=== PATIENT | female | born 1995 | race Two or more races ===

== ENCOUNTER 2025-06-09 16:17 | Inpatient (IN) | payer OTHER, MEDICAID ==
[~2025-06-09] VITALS: Ht 170.2 cm; Wt 76.6 kg
[2025-06-09 17:05] LABS: Hematocrit 40.8 % (36.0-46.0); Hemoglobin 13.8 g/dL (12.2-16.2); Mean Corpuscular Hemoglobin 29.9 pg (28.0-32.0); Mean Corpuscular Volume 88.2 fL (80.0-100.0); Nucleated Red Blood Cells % 0.0 %
[2025-06-09 17:14] LABS: Albumin 4.4 g/dL (3.2-4.8); Alkaline Phosphatase 101 U/L (46-116); Anion Gap 8 (5-15); BUN/Creatinine Ratio 11.3 (10.0-20.0); Calcium 8.8 mg/dL (8.7-10.4); Carbon Dioxide 28 mmol/L (20-31); Chloride 103 mmol/L (98-107); Glucose 101 mg/dL (74-106); Lipase 29 U/L (12-53); Potassium 3.7 mmol/L (3.5-5.1); Sodium 139 mmol/L (136-145); Total Protein 6.5 g/dL (5.7-8.2)
[2025-06-09 17:15] LABS: Bilirubin, Total 1.0 mg/dL (0.2-1.0)
--- NOTE | 2025-06-09 17:25 | DVH ---
ULTRASOUND ABDOMEN, LIMITED RIGHT UPPER QUADRANT: REASON FOR EXAM: RUQ PAIN, H/O GALLSTONES. TECHNIQUE: Real-time sector scans in the transverse and longitudinal planes were obtained through th e right upper quadrant of the abdomen. FINDINGS: The liver is borderline enlarged at 17.3 cm in length. There is hepatopetal flow in the po rtal vein. There is no intrahepatic nor extrahepatic biliary ductal dilatation. The common bile duct measures 6 mm. There are small stones within the gallbladder measuring up to 10 mm. There is no ga llbladder wall thickening nor pericholecystic fluid. There is no sonographic Babb's sign. The pancreas is mostly obscured by bowel gas. The right kidney measures 10.3 cm. No hydronephrosis or nephrolithiasis is identified. There is no evidence of right renal mass or cyst. The visualized portions of the abdominal aorta demonstrate no evidence of aneurysmal dilatation. The visualized inferior vena cava is unremarkable. There is no free fluid identified in the right upper quadrant. IMPRESSION: Cholelithiasis without other evidence of acute cholecystitis. No sonographic babb's sign. Correlat e clinically. Nuclear medicine HIDA scan may be helpful.
[2025-06-09] MEDS: PANTOPRAZOLE 40 MG TAB PO ONE (17:34)
[2025-06-09] MEDS: SUCRALFATE 1 GM TAB PO ONE (17:34)
[2025-06-09] MEDS: SODIUM CHLORIDE 0.9% 1,000 ML IV ONE ×2 (17:34→22:13)
[2025-06-09] MEDS: LIDOCAINE VISCOUS 2% 15ML UD PO ONE (17:34)
[2025-06-09] MEDS: ONDANSETRON HCL 4 MG/2 ML VIAL IV ONE (17:34)
[2025-06-09 17:38] LABS: Alanine Aminotransferase 557 U/L (7-40); Blood Urea Nitrogen 7 mg/dL (9-23)
[2025-06-09 17:40] LABS: Urine Amorphous Crystal FEW /hpf (None Seen); Urine Protein, UAD Negative (Negative)
--- NOTE | 2025-06-09 18:09 | ED.PDOC ---
GI ASSESSMENT HPI Comments 29-year-old female presents with a chief complaint of abdominal pain x 0800 this morning with associated nausea and vomiting. Patient states that her pain is localized to her RUQ/Epigastric region, nonradiating, nonexertional, describes as constant sharp pain that she rates a 8/10. Patient mentions that she knows it is her gallbladder because she has had similar pain before in the past and was diagnosed with gallstones. Patient states that she has vomited 3 times today and her emesis is brown in color. PMHx: Gallstones PSHx: Denies lynch: HPI: Poor Historian. REVIEW OF SYSTEMS: CONSTITUTIONAL: Denies acute: fever, diaphoresis, chills, HEAD: Denies acute: headache, photophobia Eyes: Denies acute: Double vision, vision loss, eye pain, eye discharge. EARS: Denies acute: tinnitus, hearing loss, ear discharge, ear pain, THROAT: Denies acute: sore throat, swelling, difficulty swallowing , pain with swallowing, change in voice. NECK: Denies acute: neck pain, neck swelling, stiff neck. HEART: Denies acute : chest pain, palpitations, LUNGS: Denies acute: SOB, wheezing, cough, hemoptysis ABDOMEN: Denies acute: diarrhea, melena , hematemesis, hematochezia SKIN: Denies acute: rash, redness, lesions, itchiness. EXTREMITIES: Denies acute: calf pain, numbness, tingling, weakness, denies pain in extremity. Denies acute: Low back pain. Neuro: Denies acute: focal neurological deficit, motor or sensory focal neurological deficit, tremors, seizure like activity, confusion, dizziness, change in mental status, loss of bowel or bladder function, cauda equina like symptoms. : Denies acute: dysuria, hematuria, flank pain, increase in urinary frequency. PSYCH: Denies acute: hallucination, suicidal ideation, homicidal ideation. FEMALE: Denies acute: abnormal vaginal bleeding, foul odor, unusual discharge. PHYSICAL EXAM: General: ----moderate----acute distress, awake and alert. Head: normocephalic, atraumatic. Neck: supple, trachea is midline, no swelling. Throat: Normal phonation. Eyes:, no erythema, no purulent discharge, no proptosis, no icterus. Heart: regular rate, regular rhythm, no significant murmur appreciated. Lungs: no apparent respiratory distress, Able to speak in full sentences. No wheezing, no rhonchi, no crackles. No stridors Clear to auscultation bilaterally. Abdomen: epig and RUQ abd tender to palpation, non distended, soft, no guarding, no rebound, + bowel sounds. Neuro: Awake, Alert, oriented to name, self, situation, follows commands GCS=15. Speech is normal. Skin: no petechia, no purpura, no cyanosis, non-pale, not jaundice. Lower extremities: --no - Pitting edema no deformity, no focal swelling, no calf TTP. Makes eye contact. moves all four extremities. Face: no apparent facial droop. Ambulating in the ED independently. ED COURSE: DISCLAIMER: This medical document was created using an electronic medical record system with voice recognition software and computerized dictation system. Although this document has been carefully reviewed, there might still be some phonetic and typographical errors. Occasional wrong-word or "sound-alike" substitutions may have occurred due to the inherent limitations of voice recognition software. These areas are purely typographical due to imperfections of the software programs and do not reflect any compromise in the patient's medical care. Please read the chart carefully and recognize, using context, where these substitutions have occurred. Chief Complaint: Abdominal Pain Time Seen by MD: 18:02 Reviewed Notes: Medications, Allergies Allergies: Coded Allergies: NO KNOWN ALLERGIES (Unverified , 06/09/25) Information Source: Patient Mode of Arrival: Ambulatory Past Medical History PAST MEDICAL HISTORY: Gallstones Surgical History: Denies all surgeries [employer] History: Denies all [employer] Hx Family History Family History: Reviewed,noncontributory to illness Social History Smoker: Non-Smoker Alcohol: Denies ETOH Use Drugs: Denies Drug Use Lives In: Home Was a procedure done? Was a procedure done?: No GI differential Dx Differential Diagnosis: Other (DDX include Diverticulitis, colitis, gastroenteritis, acute abdomen, SBO, enteritis, constipation, volvulus, appendicitis, Gallbladder disease, choledocolithiasis, ascending cholangitis, pa ncreatitis, intraAbdominal mass/neoplasm, hepatitis, UTI, pylonephritis, kidney stone, aneurysm, dissection, Inflammatory bowel disease, gastroparesis, ischemic bowel, ovarian torsion, ovarian cyst/mass, tubo-ovarian abscess, , ectopic , PID, STD.) X-Ray, Labs, Meds, VS Vital Signs Date Time Temp Pulse Resp B/P (MAP) Pulse Ox O2 Delivery O2 Flow Rate FiO2 06/09/25 18:53 113/67 06/09/25 18:29 98.3 60 14 113/67 (82) 99 98.3 06/09/25 16:20 98.6 69 18 129/53 100 98.6 Lab Test 06/09/25 17:19 06/09/25 16:51 Range/Units Urine Color Yellow Yellow Urine Clarity Turbid H Clear Urine pH 5.5 5.0-9.0 Urine Specific Hammett 1.023 1.001-1.035 Urine Protein Negative Negative Urine Ketones Negative Negative Urine Blood Negative Negative /uL Urine Nitrite Negative Negative Urine Bilirubin Negative Negative Urine Urobilinogen 4 H Negative mg/dL Urine Leukocyte Esterase 3+ Negative /uL Urine RBC 5 0 - 4 /hpf Urine Microscopic WBC 24 H 0-5 /HPF Urine Squamous Epithelial Cells Mod <5 /hpf Urine Amorphous Crystals Few None Seen /hpf Urine Bacteria Few H None Seen /hpf Urine Mucus Few None Seen Urine Glucose Normal Normal mg/dL Urine Test Positive Negative White Blood Count 8.4 4.4-10.8 10^3/uL Red Blood Count 4.62 4.0-5.20 10^6/uL Hemoglobin 13.8 12.2-16.2 g/dL Hematocrit 40.8 36.0-46.0 % Mean Corpuscular Volume 88.2 80.0-100.0 fL Mean Corpuscular Hemoglobin 29.9 28.0-32.0 pg Mean Corpuscular Hemoglobin Concent 33.9 32.0-36.0 g/dL Red Cell Distribution Width 13.8 11.8-14.3 % Platelet Count 298 140-450 10^3/uL Mean Platelet Volume 8.7 6.9-10.8 fL Neutrophils (%) (Auto) 82.3 H 37.0-80.0 % Lymphocytes (%) (Auto) 12.4 10.0-50.0 % Monocytes (%) (Auto) 4.3 0.0-12.0 % Eosinophils (%) (Auto) 0.9 0.0-7.0 % Basophils (%) (Auto) 0.1 0.0-2.0 % Neutrophils # (Auto) 6.9 1.6-8.6 10 ^3/uL Lymphocytes # (Auto) 1.0 0.4-5.4 10 ^3/uL Monocytes # (Auto) 0.4 0-1.3 10 ^3/uL Eosinophils # (Auto) 0.1 0-0.8 10 ^3/uL Basophils # (Auto) 0 0-0.2 10 ^3/uL Nucleated Red Blood Cells 0.0 % Sodium Level 139 136-145 mmol/L Potassium Level 3.7 3.5-5.1 mmol/L Chloride Level 103 98-107 mmol/L Carbon Dioxide Level 28 20-31 mmol/L Anion Gap 8 5-15 Blood Urea Nitrogen 7 L 9-23 mg/dL Creatinine 0.62 0.550-1.02 mg/dL Glomerular Filtration Rate Calc 123 >90 mL/min BUN/Creatinine Ratio 11.3 10.0-20.0 Serum Glucose 101 74-106 mg/dL Lactic Acid Level 0.9 0.4-2.0 mmol/L Calcium Level 8.8 8.7-10.4 mg/dL Total Bilirubin 1.0 0.2-1.0 mg/dL Aspartate Amino Transferase (AST) 1063 H 13-40 U/L Alanine Aminotransferase (ALT) 557 H 7-40 U/L Alkaline Phosphatase 101 46-116 U/L Troponin I High Sensitivity < 3 L </=34 ng/L Total Protein 6.5 5.7-8.2 g/dL Albumin 4.4 3.2-4.8 g/dL Lipase 29 12-53 U/L Beta HCG, Quantitative 2583.0 H 1.5-4.2 mIU/mL Current Medications Medications (Trade) Dose Ordered Sig/Annamarie Route Start Time Stop Time Status Last Admin Sucralfate (Carafate Tab) 1 gm ONCE ONCE PO 06/09/25 16:45 06/09/25 16:46 DC 06/09/25 17:34 Pantoprazole Sodium (Protonix Tablet) 40 mg ONCE ONCE PO 06/09/25 16:45 06/09/25 16:46 DC 06/09/25 17:34 Sodium Chloride 1,000 ml @ 1,000 mls/hr Q1H ONCE IV 06/09/25 16:45 06/09/25 17:44 DC 06/09/25 17:34 Ondansetron HCl (Zofran) 8 mg ONCE ONCE IV 06/09/25 16:45 06/09/25 16:46 DC 06/09/25 17:34 Fentanyl Citrate 100 mcg ONCE ONCE IV 06/09/25 18:15 06/09/25 18:16 DC 06/09/25 18:53 Piperacillin Sod/ Tazobactam Sod 100 ml @ 100 mls/hr ONCE ONCE IV 06/09/25 18:15 06/09/25 19:14 DC 06/09/25 18:53 PATIENT: SHAMIKA LYNCH ACCT: [id number] UNIT: [id number] : 1995 LOC: ER ROOM / BED: / AGE / SEX: 29 / F ADM STATUS: REG ER SERVICE [id number] ORDERING PHYSICIAN: VISHNU GALLOWAY DO PROCEDURE(s): ABDL - ABDOMEN LIMITED REASON: RUQ PAIN, H/O GALLSTONES. ORDER NUMBER(s): [id number], ACCESSION NUMBER(s): [id number] ULTRASOUND ABDOMEN, LIMITED RIGHT UPPER QUADRANT: REASON FOR EXAM: RUQ PAIN, H/O GALLSTONES. TECHNIQUE: Real-time sector scans in the transverse and longitudinal planes wer e obtained through the right upper quadrant of the abdomen. FINDINGS: The liver is borderline enlarged at 17.3 cm in length. There is hepatopetal flow in the portal vein. There is no intrahepatic nor extrahepatic biliary ductal dilatation. The common bile duct measures 6 mm. There are small stones within the gallbladder measuring up to 10 mm. There is no gallbladder wall thickening nor pericholecystic fluid. There is no sonographic Babb's sign. The pancreas is mostly obscured by bowel gas. The right kidney measures 10.3 cm. No hydronephrosis or nephrolithiasis is identified. There is no evidence of right renal mass or cyst. The visualized portions of the abdominal aorta demonstrate no evidence of aneurysmal dilatation. The visualized inferior vena cava is unremarkable. There is no free fluid identified in the right upper quadrant. IMPRESSION: Cholelithiasis without other evidence of acute cholecystitis. No sonographic babb's sign. Correlate clinically. Nuclear medicine HIDA scan may be helpful. ATED BY: YONATAN ROWELL MD DICTATED DATE/TIME: 06/09/251722 SIGNED BY: YONATAN ROWELL MD SIGNED DATE/TIME: 06/09/251722 PATIENT: SHAMIKA LYNCH ACCT: [id number] UNIT: [id number] : 1995 LOC: ER ROOM / BED: / AGE / SEX: 29 / F ADM STATUS: REG ER SERVICE 0000 ORDERING PHYSICIAN: VISHNU GALLOWAY DO PROCEDURE(s): OBTVG - OB TRANS VAGINAL US REASON: ABD PAIN ORDER NUMBER(s): [id number], ACCESSION NUMBER(s): [id number] OB EVALUATION, LESS THAN 14 WEEKS CLINICAL HISTORY: abd pain COMPARISON: None TECHNIQUE: Grayscale, color-flow Doppler, and spectral Doppler ultrasound of the pelvis is performed by transabdominal and transvaginal technique. FINDINGS: The uterus measures 10.9 x 5.6 x 6.2 cm. Endometrial thickness approximately 1 cm. 4 mm cystic structure in the cervix may represent a nabothian cyst. No intrauterine gestational sac or pole identified at this time. The right ovary measures 2.6 x 1.9 x 2.0 cm. The left ovary measures 2.8 x 1.5 x 2.0 cm. Both ovaries demonstrate dopplerable blood flow on spectral analysis. Trace fluid noted in the cul-de-sac. IMPRESSION: No intrauterine gestational sac or pole identified at this time. Differential diagnosis in this setting includes early , failure/miscarriage as well as ectopic gestation. Recommend short-term interval follow-up as well as correlation with serial beta HCG testing. ATED BY: CHRISTOPHER LOPEZ MD DICTATED DATE/TIME: 06/09/252037 SIGNED BY: CHRISTOPHER LOPEZ MD SIGNED DATE/TIME: 06/09/252037 Time of 1ST Reevaluation: 18:32 Reevaluation 1ST: Unchanged Patient Education/Counseling: Diagnosis, Treatment Family Education/Counseling: No Family Present Comments Patient initially dried any . We did a test any ways which was positive. She denies any vaginal bleeding or any lower abdominal pain or pelvic pain. MDM: patient presented with the above HPI. Epigastric abdominal pain with nausea and vomiting------workup was initiated. patient was found with the above mentioned diagnosis. the following medications were ordered: please refer to order lists of meds and tests obtained by myself Dr. Galloway. Patient ED course and VS have been stabilized. Patient has been reassessed in e ED and remained in a stable condition. Pertinent incidental findings were discussed with the patient and/or family. Patient/family voices understanding and is agreeable with plan. Patient has been observed in the ED adequate length of time to insure improvement/stability. Escalation of care considered: Consideration of escalation to observation or admission Patient was given Zosyn, fentanyl, Zofran, fluids, GI cocktail Patient was ADMITTED to the medicine team for further evaluation and treatment of their presentation. All the reports of any imaging studies that were ordered by myself were reviewed by myself. Departure 1 Departure Time of Disposition: 18:11 Impression: Primary Impression: Elevated LFTs Additional Impressions: Epigastric pain Urinary tract infection Qualified Codes: N39.0 - Urinary tract infection, site not specified Positive test Disposition: ADMITTED INPATIENT Admit to: Tele Condition: Guarded Discharged With: Self Critical Care Note Critical Care Time?: Yes (35 min-critical care time only) I personally scribed for VISHNU GALLOWAY DO ([email or web address]) on 06/09/25 at 18:09. Electronically submitted by Jon Loaiza ([email or web address]). I personally scribed for VISHNU GALLOWAY DO ([email or web address]) on 06/09/25 at 18:14. Electronically submitted by Jon Loaiza ([email or web address]). I personally scribed for VISHNU GALLOWAY DO ([email or web address]) on 06/09/25 at 20:54. Electronically submitted by Jon Loaiza ([email or web address]). VISHNU GALLOWAY DO Jun 09, 2025 18:09
[2025-06-09] MEDS: PIPERACILLIN-TAZOB 3.375GM 100 ML IV ONE (18:53)
[2025-06-09] MEDS: fentaNYL CITRATE 100 MCG/2 ML VL IV ONE (18:53)
--- NOTE | 2025-06-09 20:40 | DVH ---
OB EVALUATION, LESS THAN 14 WEEKS CLINICAL HISTORY: abd pain COMPARISON: None TECHNIQUE: Grayscale, color-flow Doppler, and spectral Doppler ultrasound of the pelvis is performed by transabdominal and transvaginal technique. FINDINGS: The uterus measures 10.9 x 5.6 x 6.2 cm. Endometrial thickness approximately 1 cm. 4 mm cystic struct ure in the cervix may represent a nabothian cyst. No intrauterine gestational sac or pole identified at this time. The right ovary measures 2.6 x 1.9 x 2.0 cm. The left ovary measures 2.8 x 1.5 x 2.0 cm. Both ovarie s demonstrate dopplerable blood flow on spectral analysis. Trace fluid noted in the cul-de-sac. IMPRESSION: No intrauterine gestational sac or pole identified at this time. Differential diagnosis in this setting includes early , failure/miscarriage as well as ectopic gestation. Recom mend short-term interval follow-up as well as correlation with serial beta HCG testing.
--- NOTE | 2025-06-09 21:09 | DVHHPRES ---
History of Present Illness Resident Creating Document: RACHELLE PARKER RESIDENT History of Present Illness Patient is a 29-year-old female with no significant past medical history who comes in due to abdominal pain. According to the patient, at 8:00 a.m. on 06/09/2025 she started experiencing a midepigastric pain with radiation to the right upper quadrant, she describes the pain 10/10 in intensity at the time of onset, exacerbated by eating and without any relieving factors. Patient notes she had eaten yogurt and chocolate for breakfast, shortly after which her pain started. Pain is associated with nausea and 4 episodes of bilious vomiting. Patient notes she had similar symptoms month ago and at the time she went to the urgent care and was told she had gallstones, however, was not given any antibiotics or pain medication at the time. Patient was also incidentally noted to be , for which patient was unaware and does not intend to keep the . On review of systems patient is complaining of urinary frequency, cough sore throat runny nose, nausea and vomiting. Patient does note having sick contacts, her children. Past Surgical History Denies Past Social History Smoking: Uses vape pen 5 times per day Alcohol: Denies Drugs: Denies Lives with family. Review of Systems Constitutional: No: Fever, Chills, Sweats, Weakness, Malaise, Other Eyes: No: Pain, Vision change, Conjunctivae inflammation, Eyelid inflammation, Other, Redness ENT: No: Ear pain, Ear discharge, Nose pain, Nose discharge, Nose congestion, Mouth pain, Mouth swelling, Throat pain, Throat swelling, Other Respiratory: Cough; No: Dry, Shortness of breath, SOB with excertion, Wheezing, Hemoptysis, Pleuritic Pain, Sputum, Wheezing, Other Cardiovascular: No: Chest Pain, Palpitations, Orthopnea, Paroxysmal Noc. Dyspnea, Edema, Lt Headedness, Other Gastrointestinal: Nausea, Vomiting, Abdominal Pain, Constipation; No: Diarrhea, Melena, Hematochezia, Other Genitourinary: No Dysuria; Frequency; No Incontinence, No Hematuria, No Retention, No Other Musculoskeletal: No: other, neck pain, shoulder pain, arm pain, back pain, hand pain, leg pain, foot pain Skin: No: Rash, Lesions, Jaundice, Bruising, Other Neurological: No: Weakness, Numbness, Incoordination, Change in speech, Confusion, Seizures, Other Allergies: Coded Allergies: NO KNOWN ALLERGIES (Unverified , 06/09/25) Exam Vital Signs Vital Signs Date Time Temp Pulse Resp B/P (MAP) Pulse Ox O2 Delivery O2 Flow Rate FiO2 06/09/25 18:53 113/67 06/09/25 18:29 98.3 60 14 99 98.3 General Appearance: Alert, Oriented X3, Cooperative, No acute distress HEENT: Atraumatic, PERRLA, EOMI, Mucous membr. moist/pink Respiratory: Clear to auscultation, Normal air movement Cardiovascular: Regular rate, Normal S1, Normal S2, No murmurs Abdominal: Normal bowel sounds, Soft, Other (Right upper quadrant tenderness to palpation) Extremities: No edema, Normal pulses, No tenderness/swelling Skin: No rashes Neuro: Normal gait, Normal speech Psych/Mental Status: Mental status NL, Mood NL Labs/Xrays Labs Test 06/09/25 17:19 06/09/25 16:51 Range/Units Urine Color Yellow Yellow Urine Clarity Turbid H Clear Urine pH 5.5 5.0-9.0 Urine Specific [place] 1.023 1.001-1.035 Urine Protein Negative Negative Urine Ketones Negative Negative Urine Blood Negative Negative /uL Urine Nitrite Negative Negative Urine Bilirubin Negative Negative Urine Urobilinogen 4 H Negative mg/dL Urine Leukocyte Esterase 3+ Negative /uL Urine RBC 5 0 - 4 /hpf Urine Microscopic WBC 24 H 0-5 /HPF Urine Squamous Epithelial Cells Mod <5 /hpf Urine Amorphous Crystals Few None Seen /hpf Urine Bacteria Few H None Seen /hpf Urine Mucus Few None Seen Urine Glucose Normal Normal mg/dL Urine Test Positive Negative White Blood Count 8.4 4.4-10.8 10^3/uL Red Blood Count 4.62 4.0-5.20 10^6/uL Hemoglobin 13.8 12.2-16.2 g/dL Hematocrit 40.8 36.0-46.0 % Mean Corpuscular Volume 88.2 80.0-100.0 fL Mean Corpuscular Hemoglobin 29.9 28.0-32.0 pg Mean Corpuscular Hemoglobin Concent 33.9 32.0-36.0 g/dL Red Cell Distribution Width 13.8 11.8-14.3 % Platelet Count 298 140-450 10^3/uL Mean Platelet Volume 8.7 6.9-10.8 fL Neutrophils (%) (Auto) 82.3 H 37.0-80.0 % Lymphocytes (%) (Auto) 12.4 10.0-50.0 % Monocytes (%) (Auto) 4.3 0.0-12.0 % Eosinophils (%) (Auto) 0.9 0.0-7.0 % Basophils (%) (Auto) 0.1 0.0-2.0 % Neutrophils # (Auto) 6.9 1.6-8.6 10 ^3/uL Lymphocytes # (Auto) 1.0 0.4-5.4 10 ^3/uL Monocytes # (Auto) 0.4 0-1.3 10 ^3/uL Eosinophils # (Auto) 0.1 0-0.8 10 ^3/uL Basophils # (Auto) 0 0-0.2 10 ^3/uL Nucleated Red Blood Cells 0.0 % Sodium Level 139 136-145 mmol/L Potassium Level 3.7 3.5-5.1 mmol/L Chloride Level 103 98-107 mmol/L Carbon Dioxide Level 28 20-31 mmol/L Anion Gap 8 5-15 Blood Urea Nitrogen 7 L 9-23 mg/dL Creatinine 0.62 0.550-1.02 mg/dL Glomerular Filtration Rate Calc 123 >90 mL/min BUN/Creatinine Ratio 11.3 10.0-20.0 Serum Glucose 101 74-106 mg/dL Lactic Acid Level 0.9 0.4-2.0 mmol/L Calcium Level 8.8 8.7-10.4 mg/dL Total Bilirubin 1.0 0.2-1.0 mg/dL Aspartate Amino Transferase (AST) 1063 H 13-40 U/L Alanine Aminotransferase (ALT) 557 H 7-40 U/L Alkaline Phosphatase 101 46-116 U/L Troponin I High Sensitivity < 3 L </=34 ng/L Total Protein 6.5 5.7-8.2 g/dL Albumin 4.4 3.2-4.8 g/dL Lipase 29 12-53 U/L Beta HCG, Quantitative 2583.0 H 1.5-4.2 mIU/mL SEPSIS Sepsis Screen Date sepsis recognized/suspect: Jun 09, 2025 Time Sepsis recognized/suspect: 1621 Recent Procedure: No On Antibiotic Therapy: No Respiratory Rate >20: No Heart Rate >90: No Temp<36 C (96.8 F) or >38.3 C: No SBP <90 or MAP <65 mmHG: No New Acute Mental Status Change: No Is the patient on CPAP, BIPAP,: No Physician Orders Cut Off Saw Grader (06/09/25 ) Abdomen Limited (06/09/25 16:36) Ob Ultrasound Comp Less 14wks (06/09/25 19:22) Ob Trans Vaginal Us (06/09/25 ) Admit (06/09/25 21:01) Code Status (06/09/25 21:) Vital Signs .PER UNIT PROTOCOL (06/09/25 21:01) Review Orders With Adm.Md (06/09/25 21:01) Npo (Nothing By Mouth) Diet (06/10/25 Breakfast) Notify Md Of Changes From Base (06/09/25 21:01) Advance Directive (06/09/25 21:01) Blood Culture (06/09/25 21:01) Urine Bacterial Culture (06/09/25 21:01) Patient Condition (06/09/25 21:01) Allergies (06/09/25 21:01) Sequential Compression Device (06/09/25 ) Oxygen By Nasal Cannula (06/09/25 21:01) Notify Md Of Changes From Base (06/09/25 21:01) Rhythm Strips Once Every Shift (06/09/25 21:01) Vital Signs Date Time Temp Pulse Resp B/P (MAP) Pulse Ox O2 Delivery O2 Flow Rate FiO2 06/09/25 18:53 113/67 06/09/25 18:29 98.3 60 14 113/67 (82) 99 98.3 06/09/25 16:20 98.6 69 18 129/53 100 98.6 Laboratory Tests Test 06/09/25 16:51 Lactic Acid Level 0.9 mmol/L (0.4-2.0) White Blood Count 8.4 10^3/uL (4.4-10.8) Medications Medications Dose Ordered Sig/Annamarie Route Start Time Stop Time Status Last Admin Dose Admin Fentanyl Citrate 100 mcg ONCE ONCE IV 06/09/25 18:15 06/09/25 18:16 DC 06/09/25 18:53 100 MCG Ondansetron HCl 8 mg ONCE ONCE IV 06/09/25 16:45 06/09/25 16:46 DC 06/09/25 17:34 8 MG Pantoprazole Sodium 40 mg ONCE ONCE PO 06/09/25 16:45 06/09/25 16:46 DC 06/09/25 17:34 40 MG Piperacillin Sod/ Tazobactam Sod 100 ml @ 100 mls/hr ONCE ONCE IV 06/09/25 18:15 06/09/25 19:14 DC 06/09/25 18:53 100 MLS/HR Sodium Chloride 1,000 ml @ 1,000 mls/hr Q1H ONCE IV 06/09/25 16:45 06/09/25 17:44 DC 06/09/25 17:34 1,000 MLS/HR Sucralfate 1 gm ONCE ONCE PO 06/09/25 16:45 06/09/25 16:46 DC 06/09/25 17:34 1 GM Assessment/Plan Assessment/Plan Acute intractable abdominal pain Possible acute cholecystitis Choledocholithiasis with cholangitis can not be ruled out Acute complicated UTI Positive beta hCG with no intrauterine gestational sac, early versus ectopic - transvaginal ultrasound: No intrauterine gestational sac or pole identified at this time. Differential diagnosis in the setting include early , failure/miscarriage as well as ectopic gestation. - right upper quadrant ultrasound: Cholelithiasis without other evidence of acute cholecystitis. No sonographic Babb's sign. - TB 1.3, AST 2189, ALT 1301, ALP 108 - ordered MRCP - ordered hepatitis panel, HIV, ordered serum acetaminophen level - UA shows 3+ leukocyte esterase, 24 WBCs and few bacteria - IV ceftriaxone, IV metronidazole - ordered blood culture, urine culture - NPO - consulted GI - consulted salesperson florist supplies DVT prophylaxis: SCDs Goals of care: Full code, discussed for >16 minutes on 06/09/2025 Plan discussed with patient Plan discussed with Dr. Storm Plan discussed with: Patient, Other (RN) My Orders Orders - RACHELLE PARKER RESIDENT Procedure Category Date Status Time Admit ADMIT 06/09/25 Transmitted 21:01 Code Status CODE 06/09/25 Transmitted 21:01 Vital Signs YUN 06/09/25 In Process 21:01 Review Orders With YUN 06/09/25 In Process Adm. 21:01 Npo (Nothing By DIET 06/10/25 Transmitted Mouth) Diet Breakfast Notify Md Of Changes YUN 06/09/25 In Process From Base 21:01 Advance Directive YUN 06/09/25 In Process 21:01 Blood Culture NIK 06/09/25 Logged 21:01 Urine Bacterial NIK 06/09/25 Logged Culture 21:01 Patient Condition ORDERS 06/09/25 Transmitted 21:01 Allergies YUN 06/09/25 In Process 21:01 Sequential YUN 06/09/25 In Process Compression Device Oxygen By Nasal RT 06/09/25 Transmitted Cannula 21:01 Notify Md Of Changes YUN 06/09/25 In Process From Base 21:01 Rhythm Strips Once YUN 06/09/25 In Process Every Shift 21:01 Date of Service: Jun 09, 2025 Billing Provider: DEDE STORM MD Common Visit Codes: [id number] INP/OBS CARE (HIGH) Secondary Visit Codes: [id number] CARE PLAN 30 MINUTES RACHELLE PARKER Jun 09, 2025 21:09
[2025-06-09] MEDS ORDERED: ACETAMINOPHEN 325 MG TAB PO PRN (21:15)
[2025-06-09 22:07] LABS: Hematocrit 38.3 % (36.0-46.0); Hemoglobin 13.0 g/dL (12.2-16.2); Mean Corpuscular Hemoglobin 30.1 pg (28.0-32.0); Mean Corpuscular Volume 88.7 fL (80.0-100.0); Nucleated Red Blood Cells % 0.0 %
[2025-06-09] MEDS: cefTRIAXone 1GM/50ML D5W 50 ML IV SCH (22:19)
[2025-06-09 22:22] LABS: Albumin 4.2 g/dL (3.2-4.8); Alkaline Phosphatase 108 U/L (46-116); Anion Gap 9 (5-15); BUN/Creatinine Ratio 12.3 (10.0-20.0); Carbon Dioxide 26 mmol/L (20-31); Chloride 103 mmol/L (98-107); Potassium 3.6 mmol/L (3.5-5.1); Sodium 138 mmol/L (136-145); Total Protein 6.6 g/dL (5.7-8.2)
[2025-06-09] MEDS: METOCLOPRAMIDE HCL 5MG/ml INJ 2ml VIAL IV PRN (22:30)
[2025-06-09 22:39] LABS: Alanine Aminotransferase 1301 U/L (7-40); Bilirubin, Total 1.3 mg/dL (0.2-1.0); Blood Urea Nitrogen 7 mg/dL (9-23); Calcium 8.6 mg/dL (8.7-10.4); Glucose 111 mg/dL (74-106)
[2025-06-10 00:31] LABS: COVID19 ANTIGEN SOFIA FIA NEGATIVE (NEGATIVE)
[2025-06-10 02:30] VITALS: BP 108/68; PULSE 56; RESP 15; TEMP 98.5; O2SAT 95
[2025-06-10 08:28] LABS: Hematocrit 36.0 % (36.0-46.0); Hemoglobin 12.2 g/dL (12.2-16.2); Mean Corpuscular Hemoglobin 30.0 pg (28.0-32.0); Mean Corpuscular Volume 88.9 fL (80.0-100.0); Nucleated Red Blood Cells % 0.0 %
[2025-06-10 08:48] LABS: Albumin 3.8 g/dL (3.2-4.8); Alkaline Phosphatase 99 U/L (46-116); Anion Gap 8 (5-15); Bilirubin, Total 1.0 mg/dL (0.2-1.0); Carbon Dioxide 27 mmol/L (20-31); Chloride 106 mmol/L (98-107); Glucose 89 mg/dL (74-106); Potassium 3.9 mmol/L (3.5-5.1); Sodium 141 mmol/L (136-145); Total Protein 5.9 g/dL (5.7-8.2)
[2025-06-10 08:49] LABS: Alanine Aminotransferase 924 U/L (7-40); BUN/Creatinine Ratio 8.6 (10.0-20.0); Blood Urea Nitrogen < 5 mg/dL (9-23); Calcium 8.3 mg/dL (8.7-10.4)
[2025-06-10 09:00] VITALS: BP 113/81; PULSE 62; RESP 18; TEMP 98.7; O2SAT 98
[2025-06-10 09:04] LABS: Magnesium 1.9 mg/dL (1.6-2.6)
[2025-06-10 09:13] LABS: INR 0.99 (0.9-1.15); Partial Thromboplastin Time 26.0 SEC (24.5-34.5); Prothrombin Time 10.5 sec (9.3-11.8)
--- NOTE | 2025-06-10 09:39 | DVH ---
CLINICAL HISTORY: choledocholithiasis TECHNIQUE: MRI and MRCP of the abdomen was performed without gadolinium. 3D reconstructed images wer e created under concurrent radiologist supervision and archived on the PACS system. COMPARISON: None FINDINGS: The spleen, pancreas, adrenal glands, kidneys, and liver are unremarkable. There are a few punctate g allstones with no wall thickening or pericholycystic fluid. The biliary tree is normal in caliber, measuring 3mm. No intraductal filling defects suggest a stone is seen. The abdominal area is normal course and caliber. No enlarged lymph node is seen. No free fluid is pre sent. IMPRESSION: Cholelithiasis. Normal caliber biliary ductal system. No intraductal filling defect to suggest a stone.
[2025-06-10] MEDS: MORPHINE SULFATE INJ 2 MG/ml SYRG IV ONE (09:50)
[2025-06-10] MEDS ORDERED: cefTRIAXone 1GM/50ML D5W 50 ML IV ONE (10:45)
[2025-06-10 13:00] VITALS: BP 121/68; PULSE 63; RESP 20; TEMP 98; O2SAT 97
--- NOTE | 2025-06-10 13:36 | DVHPNRES ---
Progress Note Date Seen: Jun 10, 2025 Resident Creating Document: JUAN A PURDY RESIDENT Medical Necessity Reason Pt with a Central, PICC or Fol: No Subjective Review of Systems Courtney Mesa is a 19 years old female with no significant PMH except recently diagnosed cholelithiasis 2 months back presented to the ED with the chief complaints of epigastric and right upper quadrant abdominal pain since on the day of admission. Per patient, at 8:00 a.m. on 06/09/2025 she started experiencing a mid epigastric pain with radiation to the RUQ, with 10/10 in intensity, exacerbated by eating and without any relieving factors. Patient notes she had eaten yogurt and chocolate for breakfast, shortly after which her pain started. Pain is associated with nausea and 4 episodes of bilious vomiting. Patient notes she had similar symptoms month ago and at the time she went to the urgent care and was told she had gallstones, however, was not given any antibiotics or pain medication at the time. Patient was also incidentally noted to be , for which patient was unaware and does not intend to keep the . On review of systems patient is complaining of urinary frequency, cough sore throat runny nose, nausea and vomiting. Patient does note having sick contacts, her children. ROS: Patient seen and examined at the bedside. Overnight events reviewed, reported no new complaints and improvement in the pain since admission. Pelvic ultrasound done showed no gastritis shock which might be due to early or ectopic which required serial follow up and consulted OBGYN. Abdominal ultrasound showed cholelithiasis without signs of cholecystitis. But due to elevated transaminitis more than 1000, Ordered MRCP which also showing same. consulted surgery and GI for further evaluation. Patient reports: Feels better Objective vital signs Vital Sign Date Time Temp Pulse Resp B/P (MAP) Pulse Ox O2 Delivery O2 Flow Rate FiO2 06/10/25 13:00 98.0 63 20 121/68 (85) 97 98.0 Total Intake and Output 06/09/25 06/09/25 06/10/25 15:00 23:00 07:00 Intake Total 1000 ml 0 ml Output Total 0 ml Balance 1000 ml 0 ml medications Current Medications Medications Dose Ordered Sig/Annamarie Route Start Time Stop Time Status Last Admin Dose Admin Acetaminophen 325 mg Q4HP PRN PO 06/09/25 21:15 Hold Metoclopramide HCl 5 mg Q6HPRN PRN IV 06/09/25 21:15 06/09/25 22:30 5 MG Ceftriaxone Sodium 50 ml @ 100 mls/hr DAILY@2100 IV 06/09/25 22:00 06/09/25 22:19 100 MLS/HR Metronidazole 100 ml @ 100 mls/hr Q8HR IV 06/09/25 22:00 06/10/25 06:15 100 MLS/HR Examination Pt is lying on bed General Appearance: Alert, Oriented X3, Cooperative, Not in acute distress HEENT: Atraumatic, Mucous membranes moist/pink Respiratory: Clear to auscultation, Normal air movement, No added sounds Cardiovascular: Regular rate, Normal S1, Normal S2, No murmurs Abdominal: Right upper quadrant tenderness to palpation. Active bowel sounds, Soft, no distention, Extremities: No edema, Normal pulses, No tenderness/swelling Skin: No Significant rash, except past surgical scars Neuro: Normal speech, sensorimotor deficits none Psych/Mental Status: Mental status NL, Mood NL Nurse was there as cuff turner machine operator during examination laboratory and microbiology Laboratory Tests 06/10/25 08:06 Test 06/10/25 08:06 Range/Units Serum Glucose 89 74-106 mg/dL Labs and/or images reviewed: Labs reviewed by me, Image(s) reviewed by me Problem List/Assessment/Plan Problem List/Assessment/Plan # Symptomatic cholelithiasis # R/o acute cholecystitis # severe transaminitis- downtrending # rule out choledocolithiasis - MRCP showed cholelithiasis but no findings cessation of CBD stone - UC abdomen showed cholelithiasis without evidence of acute cholecystitis - ordered HIDA scan - continue Flagyl and Rocephin - symptomatic treatment with Reglan and morphine as needed - clear liquids now if she tolerates - surgery and GI consult pending - ordered hepatitis panel, HIV, ordered serum acetaminophen level # Acute complicated UTI/ cystitis - evident on urinalysis - ordered urine bacterial culture - currently giving Rocephin # 1st trimester - evidence on positive beta hCG - transvaginal ultrasound showed no intrauterine gestational sac, early versus ectopic - consulted OBGYN GI PPX: Protonix VTE ppx: ambulatory Diet: clear liquids for now if tolerates Goals of care addressed with the patient for more than 27 minutes: Full code status Case discussed with Dr. Hooks,patient and nurse Plan discussed with: Patient, Other (rn) My Orders My Orders Orders - JUAN A PURDY Procedure Category Date Status Time Folate (Folic Acid) LAB 06/10/25 In Process 08:40 Drug Screen LAB 06/10/25 Logged 08:40 Vitamin B12 LAB 06/10/25 In Process 08:40 Vitamin D, 25-Hydroxy LAB 06/10/25 In Process 08:40 * Surgical Consult CONS 06/10/25 Transmitted Nm Hida Scan NM 06/10/25 Logged 13:27 Clear Liq Diet DIET 06/10/25 Transmitted Dinner Date of Service: Jun 10, 2025 Billing Provider: ISAI CEDENO MD Common Visit Codes: [id number] INP/OBS CARE(HIGH) JUAN A PURDY Jun 10, 2025 13:36 ISAI CEDENO MD Jun 10, 2025 22:44
[2025-06-10] MEDS: PANTOPRAZOLE 40 MG/10 ML VIAL INJ IV SCH (16:43)
--- NOTE | 2025-06-10 16:51 | DVHINCON2 ---
Date of service: Jun 10, 2025 History of Present Illness 29-year-old female complaining of epigastric and right upper quadrant abdominal pain associated with nausea or vomiting since yesterday. Patient denies any fevers or chills. Pain is much improved after pain medications currently. Past Medical History History of gallstones for past three months Past Surgical History None Family History: Fatty liver G8 MOTHER Hypertension G8 MOTHER G8 FATHER Family History Noncontributory Social History Vapes. Denies any alcohol or IV drug use. Allergies: Coded Allergies: NO KNOWN ALLERGIES (Unverified , 06/09/25) Current Medications Current Medications Medications (Trade) Dose Ordered Sig/Annamarie Route PRN Reason Start Time Stop Time Status Last Admin Acetaminophen (Tylenol Tablet) 325 mg Q4HP PRN PO PAIN SCALE 1-3 OR TEMP>100.4 06/09/25 21:15 Hold Metoclopramide HCl (Reglan Injection) 5 mg Q6HPRN PRN IV NAUSEA / VOMITING 06/09/25 21:15 06/09/25 22:30 Ceftriaxone Sodium 50 ml @ 100 mls/hr DAILY@2100 IV 06/09/25 22:00 06/09/25 22:19 Metronidazole 100 ml @ 100 mls/hr Q8HR IV 06/09/25 22:00 06/10/25 13:36 Ceftriaxone Sodium 50 ml @ 100 mls/hr DAILY@09 IV 06/11/25 09:00 06/10/25 10:51 DC Pantoprazole Sodium (Protonix) 40 mg DAILY IV 06/10/25 13:45 06/10/25 16:43 Vital Signs Vital Signs Date Time Temp Pulse Resp B/P (MAP) Pulse Ox O2 Delivery O2 Flow Rate FiO2 06/10/25 13:00 98.0 63 20 121/68 (85) 97 98.0 Physical Exam GEN: Age-appropriate female in no acute distress. Alert. HEENT: Normocephalic atraumatic. Moist mucous membranes. Anicteric sclerae. CV: RRR Respiratory: CTAB ABD: Very minimal right upper quadrant tenderness to palpation without guarding or rebound. Nondistended. Abdominal ultrasound: Cholelithiasis. Common bile duct at 6 mm. Transvaginal ultrasound: No intrauterine gestational sac or pole identified. Differential diagnosis in the setting including early , failure/miscarriage, possible ectopic gestation. Labs/Diagnostic Data Labs Test 06/10/25 10:39 06/10/25 08:06 06/10/25 01:12 06/09/25 23:40 Range/Units Ammonia 12 11-32 umol/L White Blood Count 4.8 4.4-10.8 10^3/uL Red Blood Count 4.05 4.0-5.20 10^6/uL Hemoglobin 12.2 12.2-16.2 g/dL Hematocrit 36.0 36.0-46.0 % Mean Corpuscular Volume 88.9 80.0-100.0 fL Mean Corpuscular Hemoglobin 30.0 28.0-32.0 pg Mean Corpuscular Hemoglobin Concent 33.8 32.0-36.0 g/dL Red Cell Distribution Width 14.0 11.8-14.3 % Platelet Count 258 140-450 10^3/uL Mean Platelet Volume 8.8 6.9-10.8 fL Neutrophils (%) (Auto) 58.7 37.0-80.0 % Lymphocytes (%) (Auto) 30.6 10.0-50.0 % Monocytes (%) (Auto) 6.7 0.0-12.0 % Eosinophils (%) (Auto) 3.7 0.0-7.0 % Basophils (%) (Auto) 0.3 0.0-2.0 % Neutrophils # (Auto) 2.8 1.6-8.6 10 ^3/uL Lymphocytes # (Auto) 1.5 0.4-5.4 10 ^3/uL Monocytes # (Auto) 0.3 0-1.3 10 ^3/uL Eosinophils # (Auto) 0.2 0-0.8 10 ^3/uL Basophils # (Auto) 0 0-0.2 10 ^3/uL Nucleated Red Blood Cells 0.0 % Prothrombin Time 10.5 9.3-11.8 sec Prothrombin Time INR 0.99 0.9-1.15 Activated Partial Thromboplast Time 26.0 24.5-34.5 SEC Sodium Level 141 136-145 mmol/L Potassium Level 3.9 3.5-5.1 mmol/L Chloride Level 106 98-107 mmol/L Carbon Dioxide Level 27 20-31 mmol/L Anion Gap 8 5-15 Blood Urea Nitrogen < 5 L 9-23 mg/dL Creatinine 0.58 0.550-1.02 mg/dL Glomerular Filtration Rate Calc 125 >90 mL/min BUN/Creatinine Ratio 8.6 L 10.0-20.0 Serum Glucose 89 74-106 mg/dL Calcium Level 8.3 L 8.7-10.4 mg/dL Magnesium Level 1.9 1.6-2.6 mg/dL Total Bilirubin 1.0 0.2-1.0 mg/dL Aspartate Amino Transferase (AST) 833 H 13-40 U/L Alanine Aminotransferase (ALT) 924 H 7-40 U/L Alkaline Phosphatase 99 46-116 U/L Total Protein 5.9 5.7-8.2 g/dL Albumin 3.8 3.2-4.8 g/dL Thyroid Stimulating Hormone (TSH) 4.41 0.55-4.78 uIU/mL Plasma/Serum Blood Alcohol < 3.0 <10 mg/dL Acetaminophen Level < 2.0 L 10.0-20.0 UG/ML HIV (1&2) Antibody Negative Negative Influenza Type A Antigen Negative Negative Influenza Type B Antigen Negative Negative SARS-CoV-2 Antigen (Rapid) Negative NEGATIVE Test 06/09/25 21:16 06/09/25 17:19 06/09/25 16:51 Range/Units Urine Color Yellow Yellow Urine Clarity Turbid H Clear Urine pH 5.5 5.0-9.0 Urine Specific [place] 1.023 1.001-1.035 Urine Protein Negative Negative Urine Ketones Negative Negative Urine Blood Negative Negative /uL Urine Nitrite Negative Negative Urine Bilirubin Negative Negative Urine Urobilinogen 4 H Negative mg/dL Urine Leukocyte Esterase 3+ Negative /uL Urine RBC 5 0 - 4 /hpf Urine Microscopic WBC 24 H 0-5 /HPF Urine Squamous Epithelial Cells Mod <5 /hpf Urine Amorphous Crystals Few None Seen /hpf Urine Bacteria Few H None Seen /hpf Urine Mucus Few None Seen Urine Glucose Normal Normal mg/dL Urine Test Positive Negative Lactic Acid Level 0.9 0.4-2.0 mmol/L Troponin I High Sensitivity < 3 L </=34 ng/L Lipase 29 12-53 U/L Beta HCG, Quantitative 2583.0 H 1.5-4.2 mIU/mL Assessment 1. Cholecystitis 2. Elevated hCG Plan/Recommendation 1. We will wait for OBGYN consultation. 2. Once cleared by OBGYN, will proceed with laparoscopic cholecystectomy. Plan discussed with: Patient DANIAL FLORES MD Jun 10, 2025 16:51
[2025-06-10 17:00] VITALS: BP 109/64; PULSE 58; RESP 16; TEMP 99; O2SAT 97
--- NOTE | 2025-06-10 22:07 | DVHINCON2 ---
Date of service: Jun 10, [address] Webb Reason for Consultation RUQ pain and elevated LFTs History of Present Illness Patient is a 29-year-old female with no significant past medical history who comes in due to abdominal pain. According to the patient, at 8:00 a.m. on 06/09/2025 she started experiencing a midepigastric pain with radiation to the right upper quadrant, she describes the pain 10/10 in intensity at the time of onset, exacerbated by eating and without any relieving factors. Patient notes she had eaten yogurt and chocolate for breakfast, shortly after which her pain started. Pain is associated with nausea and 4 episodes of bilious vomiting. Patient notes she had similar symptoms month ago and at the time she went to the urgent care and was told she had gallstones, however, was not given any antibiotics or pain medication at the time. Patient was also incidentally noted to be , for which patient was unaware and does not intend to keep the . On review of systems patient is complaining of urinary frequency, cough sore throat runny nose, nausea and vomiting. Patient does note having sick contacts, her children. Past Medical History Past Surgical History Denies Family History: Fatty liver G8 MOTHER Hypertension G8 MOTHER G8 FATHER Social History Past Social History Smoking: Uses vape pen 5 times per day Alcohol: Denies Drugs: Denies Allergies: Coded Allergies: NO KNOWN ALLERGIES (Unverified , 06/09/25) Current Medications Current Medications Medications (Trade) Dose Ordered Sig/Annamarie Route PRN Reason Start Time Stop Time Status Last Admin Ceftriaxone Sodium 50 ml @ 100 mls/hr DAILY@09 IV 06/11/25 09:00 06/10/25 10:51 DC Pantoprazole Sodium (Protonix) 40 mg DAILY IV 06/10/25 13:45 06/10/25 16:43 Vital Signs Vital Signs Date Time Temp Pulse Resp B/P (MAP) Pulse Ox O2 Delivery O2 Flow Rate FiO2 06/10/25 17:00 99.0 58 16 109/64 (79) 97 99.0 06/10/25 09:46 Room Air* 0 21 Physical Exam GEN: Age-appropriate female in no acute distress. Alert. HEENT: Normocephalic atraumatic. Moist mucous membranes. Anicteric sclerae. CV: RRR; Respiratory: CTAB ABD: Very minimal right upper quadrant tenderness to palpation without guarding or rebound. Nondistended. Ect no c/c/e Labs/Diagnostic Data Labs Test 06/10/25 10:39 06/10/25 08:06 06/10/25 01:12 06/09/25 23:40 Range/Units Ammonia 12 11-32 umol/L White Blood Count 4.8 4.4-10.8 10^3/uL Red Blood Count 4.05 4.0-5.20 10^6/uL Hemoglobin 12.2 12.2-16.2 g/dL Hematocrit 36.0 36.0-46.0 % Mean Corpuscular Volume 88.9 80.0-100.0 fL Mean Corpuscular Hemoglobin 30.0 28.0-32.0 pg Mean Corpuscular Hemoglobin Concent 33.8 32.0-36.0 g/dL Red Cell Distribution Width 14.0 11.8-14.3 % Platelet Count 258 140-450 10^3/uL Mean Platelet Volume 8.8 6.9-10.8 fL Neutrophils (%) (Auto) 58.7 37.0-80.0 % Lymphocytes (%) (Auto) 30.6 10.0-50.0 % Monocytes (%) (Auto) 6.7 0.0-12.0 % Eosinophils (%) (Auto) 3.7 0.0-7.0 % Basophils (%) (Auto) 0.3 0.0-2.0 % Neutrophils # (Auto) 2.8 1.6-8.6 10 ^3/uL Lymphocytes # (Auto) 1.5 0.4-5.4 10 ^3/uL Monocytes # (Auto) 0.3 0-1.3 10 ^3/uL Eosinophils # (Auto) 0.2 0-0.8 10 ^3/uL Basophils # (Auto) 0 0-0.2 10 ^3/uL Nucleated Red Blood Cells 0.0 % Prothrombin Time 10.5 9.3-11.8 sec Prothrombin Time INR 0.99 0.9-1.15 Activated Partial Thromboplast Time 26.0 24.5-34.5 SEC Sodium Level 141 136-145 mmol/L Potassium Level 3.9 3.5-5.1 mmol/L Chloride Level 106 98-107 mmol/L Carbon Dioxide Level 27 20-31 mmol/L Anion Gap 8 5-15 Blood Urea Nitrogen < 5 L 9-23 mg/dL Creatinine 0.58 0.550-1.02 mg/dL Glomerular Filtration Rate Calc 125 >90 mL/min BUN/Creatinine Ratio 8.6 L 10.0-20.0 Serum Glucose 89 74-106 mg/dL Calcium Level 8.3 L 8.7-10.4 mg/dL Magnesium Level 1.9 1.6-2.6 mg/dL Total Bilirubin 1.0 0.2-1.0 mg/dL Aspartate Amino Transferase (AST) 833 H 13-40 U/L Alanine Aminotransferase (ALT) 924 H 7-40 U/L Alkaline Phosphatase 99 46-116 U/L Total Protein 5.9 5.7-8.2 g/dL Albumin 3.8 3.2-4.8 g/dL Thyroid Stimulating Hormone (TSH) 4.41 0.55-4.78 uIU/mL Plasma/Serum Blood Alcohol < 3.0 <10 mg/dL Acetaminophen Level < 2.0 L 10.0-20.0 UG/ML HIV (1&2) Antibody Negative Negative Influenza Type A Antigen Negative Negative Influenza Type B Antigen Negative Negative SARS-CoV-2 Antigen (Rapid) Negative NEGATIVE Test 06/09/25 21:16 06/09/25 17:19 06/09/25 16:51 Range/Units Urine Color Yellow Yellow Urine Clarity Turbid H Clear Urine pH 5.5 5.0-9.0 Urine Specific [place] 1.023 1.001-1.035 Urine Protein Negative Negative Urine Ketones Negative Negative Urine Blood Negative Negative /uL Urine Nitrite Negative Negative Urine Bilirubin Negative Negative Urine Urobilinogen 4 H Negative mg/dL Urine Leukocyte Esterase 3+ Negative /uL Urine RBC 5 0 - 4 /hpf Urine Microscopic WBC 24 H 0-5 /HPF Urine Squamous Epithelial Cells Mod <5 /hpf Urine Amorphous Crystals Few None Seen /hpf Urine Bacteria Few H None Seen /hpf Urine Mucus Few None Seen Urine Glucose Normal Normal mg/dL Urine Test Positive Negative Lactic Acid Level 0.9 0.4-2.0 mmol/L Troponin I High Sensitivity < 3 L </=34 ng/L Lipase 29 12-53 U/L Beta HCG, Quantitative 2583.0 H 1.5-4.2 mIU/mL Microbiology Date/Time Source Procedure Growth Status 06/09/25 21:20 Blood Blood Culture - Preliminary NO GROWTH AFTER 24 HOURS OF INCUBATION. Resulted Abdominal ultrasound: Cholelithiasis. Common bile duct at 6 mm. Transvaginal ultrasound: No intrauterine gestational sac or pole identified. Differential diagnosis in the setting including early , failure/miscarriage, possible ectopic gestation. Problems(with codes): (1) Elevated LFTs (2) Positive test (3) Epigastric pain (4) Urinary tract infection Plan/Recommendation Plan Patient has evidence of cholelithiasis with the acute cholecystitis and transaminitis MRCP shows no CBD stone Surgical consult was placed Awaiting clearance from OBGYN followed by possible cholecystectomy Surgical consult appreciated Plan discussed with: Patient JOHNNIE BATES MD Jun 10, 2025 22:07
--- NOTE | 2025-06-11 07:03 | DVHDSRES ---
Discharge Summary Date of Admission Resident Creating Document: JUAN A PURDY RESIDENT Jun 09, 2025 at 21:01 Date of Discharge: Jun 10, 2025 Admitting Diagnosis Abdominal pain Labs/Diagnostic Data: Laboratory Results Test 06/10/25 10:39 06/10/25 08:06 06/10/25 01:12 06/09/25 23:40 Ammonia 12 umol/L (11-32) White Blood Count 4.8 10^3/uL (4.4-10.8) Red Blood Count 4.05 10^6/uL (4.0-5.20) Hemoglobin 12.2 g/dL (12.2-16.2) Hematocrit 36.0 % (36.0-46.0) Mean Corpuscular Volume 88.9 fL (80.0-100.0) Mean Corpuscular Hemoglobin 30.0 pg (28.0-32.0) Mean Corpuscular Hemoglobin Concent 33.8 g/dL (32.0-36.0) Red Cell Distribution Width 14.0 % (11.8-14.3) Platelet Count 258 10^3/uL (140-450) Mean Platelet Volume 8.8 fL (6.9-10.8) Neutrophils (%) (Auto) 58.7 % (37.0-80.0) Lymphocytes (%) (Auto) 30.6 % (10.0-50.0) Monocytes (%) (Auto) 6.7 % (0.0-12.0) Eosinophils (%) (Auto) 3.7 % (0.0-7.0) Basophils (%) (Auto) 0.3 % (0.0-2.0) Neutrophils # (Auto) 2.8 10 ^3/uL (1.6-8.6) Lymphocytes # (Auto) 1.5 10 ^3/uL (0.4-5.4) Monocytes # (Auto) 0.3 10 ^3/uL (0-1.3) Eosinophils # (Auto) 0.2 10 ^3/uL (0-0.8) Basophils # (Auto) 0 10 ^3/uL (0-0.2) Nucleated Red Blood Cells 0.0 % Prothrombin Time 10.5 sec (9.3-11.8) Prothrombin Time INR 0.99 (0.9-1.15) Activated Partial Thromboplast Time 26.0 SEC (24.5-34.5) Sodium Level 141 mmol/L (136-145) Potassium Level 3.9 mmol/L (3.5-5.1) Chloride Level 106 mmol/L (98-107) Carbon Dioxide Level 27 mmol/L (20-31) Anion Gap 8 (5-15) Blood Urea Nitrogen < 5 mg/dL (9-23) Creatinine 0.58 mg/dL (0.550-1.02) Glomerular Filtration Rate Calc 125 mL/min (>90) BUN/Creatinine Ratio 8.6 (10.0-20.0) Serum Glucose 89 mg/dL (74-106) Calcium Level 8.3 mg/dL (8.7-10.4) Magnesium Level 1.9 mg/dL (1.6-2.6) Total Bilirubin 1.0 mg/dL (0.2-1.0) Aspartate Amino Transferase (AST) 833 U/L (13-40) Alanine Aminotransferase (ALT) 924 U/L (7-40) Alkaline Phosphatase 99 U/L (46-116) Total Protein 5.9 g/dL (5.7-8.2) Albumin 3.8 g/dL (3.2-4.8) Thyroid Stimulating Hormone (TSH) 4.41 uIU/mL (0.55-4.78) Plasma/Serum Blood Alcohol < 3.0 mg/dL (<10) Acetaminophen Level < 2.0 UG/ML (10.0-20.0) HIV (1&2) Antibody Negative (Negative) Influenza Type A Antigen Negative (Negative) Influenza Type B Antigen Negative (Negative) SARS-CoV-2 Antigen (Rapid) Negative (NEGATIVE) Test 06/09/25 21:16 06/09/25 17:19 06/09/25 16:51 Urine Color Yellow (Yellow) Urine Clarity Turbid (Clear) Urine pH 5.5 (5.0-9.0) Urine Specific [place] 1.023 (1.001-1.035) Urine Protein Negative (Negative) Urine Ketones Negative (Negative) Urine Blood Negative /uL (Negative) Urine Nitrite Negative (Negative) Urine Bilirubin Negative (Negative) Urine Urobilinogen 4 mg/dL (Negative) Urine Leukocyte Esterase 3+ /uL (Negative) Urine RBC 5 /hpf (0 - 4) Urine Microscopic WBC 24 /HPF (0-5) Urine Squamous Epithelial Cells Mod /hpf (<5) Urine Amorphous Crystals Few /hpf (None Seen) Urine Bacteria Few /hpf (None Seen) Urine Mucus Few (None Seen) Urine Glucose Normal mg/dL (Normal) Urine Test Positive (Negative) Lactic Acid Level 0.9 mmol/L (0.4-2.0) Troponin I High Sensitivity < 3 ng/L (</=34) Lipase 29 U/L (12-53) Beta HCG, Quantitative 2583.0 mIU/mL (1.5-4.2) Other Laboratory Tests 06/10/25 08:06 Brief Hx & Hospital Course: Reason for Admission: 19-year-old female with a recent diagnosis of cholelithiasis presented to the ED with severe epigastric and right upper quadrant abdominal pain, associated with nausea and multiple episodes of bilious vomiting. Pain was exacerbated by food intake and rated 10/10 in intensity. She also reported urinary frequency, cough, sore throat, and nausea. Incidentally found to be , which was previously unknown to the patient. Hospital Course: On admission, the patient was found to have symptomatic cholelithiasis without sonographic evidence of acute cholecystitis. However, she had significant transaminitis (AST/ALT >1000), prompting further evaluation with MRCP, which confirmed cholelithiasis without choledocholithiasis. A HIDA scan was ordered for further evaluation. She was started on IV antibiotics (Flagyl and Rocephin) and symptomatic management with Reglan and morphine. Clear liquids were initiated as tolerated. Urinalysis was consistent with acute complicated UTI/cystitis, and urine culture was sent. Rocephin was continued for coverage. OBGYN was consulted due to a positive beta-hCG and transvaginal ultrasound showing no intrauterine gestational sac, raising concern for early versus ectopic . Serial beta-hCG and follow-up imaging were planned. Despite ongoing evaluation, the patient expressed a desire to leave the hospital against medical advice. She was counseled extensively regarding the risks of leaving prior to completion of diagnostic workup and treatment, including the potential for worsening infection, complications from gallstones, and the need for close follow-up regarding her status. The patient verbalized understanding of these risks and declined further inpatient care. Instructions: Return to the ED immediately for worsening abdominal pain, fever, vomiting, jaundice, or vaginal bleeding. Patient left AMA on 06/10/25 after understanding and accepting the risks. Operations or Procedures OB EVALUATION, LESS THAN 14 WEEKS TECHNIQUE: Grayscale, color-flow Doppler, and spectral Doppler ultrasound of the pelvis is performed by transabdominal and transvaginal technique. IMPRESSION: No intrauterine gestational sac or pole identified at this time. Differential diagnosis in this setting includes early , failure/miscarriage as well as ectopic gestation. Recommend short-term interval follow-up as well as correlation with serial beta HCG testing. ------- ULTRASOUND ABDOMEN, LIMITED RIGHT UPPER QUADRANT: REASON FOR EXAM: RUQ PAIN, H/O GALLSTONES. IMPRESSION: Cholelithiasis without other evidence of acute cholecystitis. No sonographic chawla's sign. Correlate clinically. Nuclear medicine HIDA scan may be helpful. ------- OB EVALUATION, LESS THAN 14 WEEKS CLINICAL HISTORY: abd pain COMPARISON: None TECHNIQUE: Grayscale, color-flow Doppler, and spectral Doppler ultrasound of the pelvis is performed by transabdominal and transvaginal technique. IMPRESSION: No intrauterine gestational sac or pole identified at this time. Differential diagnosis in this setting includes early , failure/miscarriage as well as ectopic gestation. Recommend short-term interval follow-up as well as correlation with serial beta HCG testing. ------ CLINICAL HISTORY: choledocholithiasis TECHNIQUE: MRI and MRCP of the abdomen was performed without gadolinium. 3D reconstructed images were created under concurrent radiologist supervision and archived on the PACS system. COMPARISON: None IMPRESSION: Cholelithiasis. Normal caliber biliary ductal system. No intraductal filling defect to suggest a stone. Condition at Discharge: Undetermined Final Diagnosis/Problems List # Symptomatic cholelithiasis # Possible acute cholecystitis # severe transaminitis- downtrending # rule out choledocolithiasis # Acute complicated UTI/ cystitis # 1st trimester Discharge Disposition: AMA Discharge Statement: "Patient was advised to return to the ER or call 911 if any headaches, dizziness, shortness of breath, chest pain, abdominal pain, bleeding, fevers, or worsening of medical condition. Patient was counseled about treatment plan, medications, possible side effects, patientverbalized understanding. All questions were answered to the best of my ability. This discharge took greater then 30 minutes in planning, reviewing documentation, counseling the patient, and discussing with other team members." ASSESSMENT ASSESSMENT Assessment JUAN A PURDY RESIDENT Jun 11, 2025 07:03
[2025-06-11] MEDS ORDERED: cefTRIAXone 1GM/50ML D5W 50 ML IV SCH (09:00)
[2025-06-11 14:20] LABS: Hepatitis A Total Antibody Positive (Negative); Hepatitis B Surface Antigen Negative (Negative); Hepatitis C Antibody Negative (Negative)
== END 2025-06-10 18:58 | disposition left against medical advice (07) | DRG 445 ==
LOC: ER 16:17 → OVERFLOW 21:01
PROVIDERS: ATTEND Emergency Medicine
DX: K80.10 Calculus of gallbladder with chronic cholecystitis without obstruction (principal); N39.0 Urinary tract infection, site not specified; Z33.1 Pregnant state, incidental; Z20.822 Contact with and (suspected) exposure to COVID-19; Z53.29 Procedure and treatment not carried out because of patient's decision for other reasons; F17.290 Nicotine dependence, other tobacco product, uncomplicated; Z82.49 Family history of ischemic heart disease and other diseases of the circulatory system
CPT/HCPCS: 36415; 74181; 76705; 76801; 76817; 80053; 80320; 80329; 81001; 81025; 82140; 82306; 82607; 82746; 83605; 83690; 83735; 84443; 84484; 84702; 85025; 85610; 85730; 86038; 86703; 86704; 86706; 86708; 86803; 87040; 87086; 87340; 87426; 87804; 96361; 96374; 99291; G0378; J2405; J2470; J2543; J3490